=== PATIENT | female | born 1970 | race Caucasian/White ===

== ENCOUNTER 2024-08-02 08:10 | Outpatient (CLI) | payer MEDICARE, SELFPAY ==
--- NOTE | ~2024-08-02 | US_ITS ---
EXAMINATION: US soft tissue head and neck DATE: 08/02/2024 08:23 INDICATION: Localized swelling, mass and lump, head and neck. TECHNIQUE: Multiple grayscale and Doppler ultrasound images of the head and neck were obtained. COMPARISON: None FINDINGS: In the right posterior inferior scalp, there is a 5.4 x 5.4 x 2.2 cm mass with similar echo genicity and echotexture to normal subcutaneous fat, consistent with a lipoma. IMPRESSION: 1. 5.4 cm lipoma in the right posterior inferior scalp. Reviewed, dictated and finalized at location [] NUE SETTLEMENTS ADMINISTRATOR
== END 2024-08-02 08:11 | disposition home or self-care (01) ==
LOC: GOSHIMG 08:10
PROVIDERS: PCP Physician Assistant Surgical; Visit Provider Physician Assistant Surgical
DX: D17.39 Benign lipomatous neoplasm of skin and subcutaneous tissue of other sites (principal); R22.0 Localized swelling, mass and lump, head
CPT/HCPCS: 76536

== ENCOUNTER 2024-12-29 00:11 | Day surgery (SDC) | payer MEDICARE, SELFPAY ==
[2024-12-22 11:13] VITALS: BMI 41.4
--- NOTE | 2024-12-22 11:14 | PC.NURSE ---
Report to the Outpatient Waiting Room, entrance under the green pavilion located off [facility], at time _0600_ on date _[id number]_. Planned Procedure Time: _0730_.? Time changes happen often and if your time is changed the preop area will call you the afternoon before. - You and your visitor will be asked to self-screen and do not enter if you have any COVID symptoms. Please call surgeon if you need to reschedule. - A mask is optional within the hospital at this time. - No food drink from midnight until time of surgery and no smoking, or chewing tobacco (or any form of nicotine). No chewing gum, candy or mints. Take only the following medications with a SIP of water on the morning of surgery: ___Atenolol and eye drops____ DO NOT STOP ANY OF YOUR OTHER PRESCRIPTION MEDICATIONS PRIOR TO SURGERY EXCEPT THE FOLLOWING Hold all vitamins and supplements for 3 days per anesthesiologist. Medications to discontinue per physician Date to take last zmma__[id number]____ Please no make-up, nail south su[place]ese, hairspray, perfume, deodorant, or body powder the day of surgery.? No jewelry (including any body piercings) or valuables the day of surgery, leave them at home.? Please take a shower or bath the night before, or the morning of, surgery with an antibacterial soap.? Wear comfortable, loose fitting clothing.? - Jewelry must be removed prior to entering the operating room.? Rings and piercings that are not removed may be cut off. - The hospital will not accept responsibility for valuables.? - Please leave all valuables, including medications, at home the day of surgery. If you are going home after surgery, a licensed salesperson driver must drive you home.? - NO public transportation without another adult if you receive anesthesia. - We recommend that an adult stay with you for 24 hours following discharge. - We also recommend that you do not drive, make important decision, drink alcoholic beverages, or take any drugs that were not prescribed by your health care provider for at least 24 hours after your discharge time. Follow any additional instructions given to you from your surgeon. Telephone instructions given to __Fred Rosa/brother___and asked if any additional questions and then verbalized understanding. Patient advised to call surgeon office or pre surgery nurse liaison [phone] if any additional questions.
[2024-12-29] VITALS (9 sets, daily range): BP systolic 143–162; BP diastolic 87–103; PULSE 63–90; RESP 14–20; TEMP 36.1–36.8; O2SAT 94–99
--- OUTSIDE RECORDS SUMMARY | 2024-12-29 00:13 | XMS_ITS | Continuity of Care Document ---
Author Organization [facility] Address [address] [place] [address] [address] [place] [address] Phone Care Team Providers Care Acid Plant Helper Name Role Phone Toño DAMON FACS, José Unavailable Unavailab le Procedures Procedure Date Eye Exam Established Pt Corneal Topography Eye Exam Established Pt Eye Exam Established Pt Eye Exam Established Pt Eye Exam Established Pt Office/outpatient Visit, Est Eye Exam & Treatment Oct Fundus Photography W/ Report Eye Exam Established Pt Optic Nerve Head Eval Office/outpatient Visit, Est Optic Nerve Head Eval Office/outpatient Visit, Est Optic Nerve Head Eval Office/outpatient Visit, Est Office/outpatient Visit, Est Inject/treat Eye Socket Office/outpatient Visit, Est Office/outpatient Visit, Est Office/outpatient Visit, Est Eye Exam Established Pt Office/outpatient Visit, Est Eye Exam Established Pt Office/outpatient Visit, Est Advance Directives Directive Yes / No Effective Date File Name No Information Encounters Encounter Description Practice Location Reason(s) For Visit Diagnoses Date Provider Providers Copied on Encounter [facility], [address], [place], [place], [id number], tel:[phone] SEC [facility] Nannette No Information Nov-1 4-200 7 Toño Kumar. [address], [address], [place], [place], [address], [place]. tel:[phone] Referring Provider: Nettie Daugherty, [address], [place], [place], [facility]. tel:[phone] [facility] Eye [facility], [address], [place], [place], [address], [place] tel:[phone] SEC [place] TIFFANY Professional No Information Nov-0 9-200 7 Isidra Sheffield. [address] [facility], [address], [place], [place], [facility], [place]. tel:[phone] [facility] Eye [facility], [address], [place], [place], [address], [place] tel:[phone] SEC [place] Professional No Information Nov-0 7-200 7 Isidra Sheffield. [address], [address], [place], [place], [facility], [place]. tel:[phone] [facility], [address], [place], [place], [address], [place] tel:[phone] SEC [place] Professional No Information Oct-1 7-200 7 Isidra Sheffield. [address], [address], [place], [place], [facility], [place]. tel:[phone] [facility], [address], [place], [place], [address], [place] tel:[phone] SEC [place] Professional No Information Oct-1 2-200 7 Isidra Sheffield. [address], [address], [place], [place], [facility], [place]. tel:[phone] Office/outpat ient Visit, Est [facility], [address], [place], [place], [address], [place] tel:[phone] SEC [facility] Professional No Information Oct-1 0-200 7 Isidra Sheffield. [address] [facility], [address], [place], [address], [place]. tel:[phone] [facility], [address], [place], [place], [address], [place] tel:[phone] SEC [facility] Professional No Information Oct-0 2-200 7 Isidra Sheffield. [address] [facility], [address], [place], [address], [place]. tel:[phone] Referring Provider: Earl Thurston, [address] [place], [place] [address], [place], [place], [facility]. tel:[phone] [facility], [address] [place] [address] [address], [place], [place], [address], [place] tel:[phone] SEC [facility] No Information Oct-0 1-200 7 Valerie Elliott. [facility] , [address], [place], [place], [facility], [place]. tel:[phone] Office/outpat ient Visit, [facility] Eye [facility], [address] [place] [address] [address], [place], [place], [address], [place] tel:[phone] SEC [facility] Corporate Center No Information Aug-0 2-200 7 Kaitlyn Lawson. [address] , [address], [place], [facility], [place]. tel:[phone] Office/outpat ient Visit, [facility] Eye [facility], [address] [place] [address] [address], [place], [place], [address], [place] tel:[phone] SEC [facility] No Information Boy-1 9-200 7 Kaitlyn Lawson. [address] [facility] , [address], [place], [facility], [place]. tel:[phone] Office/outpat ient Visit, [email or web address], [address] [place] [address] [address], [place], [place], [address], [place] tel:[phone] SEC [facility] No Information Apr-0 5-200 7 Sahni Lulu. [address] , [address], [place], [facility], . tel:[phone] Office/outpat ient Visit, [facility], [address] [place] [address] [address], [place], [place], [address], [place] tel:[phone] SEC [facility] No Information Mar-0 8-200 7 Sahni Lulu. [address] , [address], [place], [facility], . tel:[phone] [facility], [address] [place] [address] [address], [place], [place], [address], tel:[phone] SEC [facility] [facility] No Information Feb-2 2-200 7 Sahni Lulu. [address] , [address], [place], [facility], [place]. tel:[phone] Office/outpat ient Visit, [facility], [address] [place] [address] [address], [place], [place], [address], [place] tel:[phone] SEC [facility] No Information Feb-2 1-200 7 Edgar OD Omid. [address] , [address], [place], [facility], [place]. tel:[phone] Office/outpat ient Visit, [facility], [address] [place] [address] [address], [place], [place], [address], [place] tel:[phone] SEC [facility] [facility] No Information Feb-0 7-200 7 Edgar OD Omid. [address] , [address], [place], [facility], [place]. tel:[phone] Office/outpat ient Visit, [facility] Eye [facility], [address], [place], [place], [address], [place] tel:[phone] SEC [facility] [facility] No Information 1-200 7 Edgar OD Omid. [address] , [address], [place], [facility], [place]. tel:[phone] [facility], [address] [place] [address] [address], [place], [place], [address], [place] tel:[phone] SEC [facility] No Information 6-200 7 Doisy Edward. [address] , [address], [place], [facility], . tel:[phone] Office/outpat ient Visit, [facility] Eye [facility], [address] [place] [address] [address], [place], [place], [address], [place] tel:[phone] SEC [facility] No Information 9-200 7 Egdar OD Omid. [address] , [address], [place], [facility], [place]. tel:[phone] [facility], [address] [place] [address] [address], [place], [place], [address], [place] tel:[phone] SEC [facility] No Information 2-200 7 Edgar OD Omid. [address] , [address], [place], [facility], [place]. tel:[phone] Office/outpat ient Visit, [facility], [address] [place] [address] [address], [place], [place], [address], [place] tel:[phone] SEC [facility] No Information 0-200 7 Edgar OD Omid. [address] , [address], [place], [facility], [place]. tel:[phone] Family History Family Member Type Diagnosis Age At Onset No Information Payers Payer name Insurance type Covered democrat ID Authoriza tion(s) [place] [id number] Social History Type Description Quantity Date Captured Comments Sex Female Smoking Status No Information Chief Complaint And Reason For Visit No Information Reason For Referral Reason For Referral No Information History Of Present Illness Encounter Date Complaint History Of Prese nt Illness No Information Functional Status Date Functional Assessmen t No Information Instructions Date Instruction Additional Infor mation No Information Assessments Type Assessment Date No Information Patient Care Teams Name Effective Dates (start - stop) Status Members No Information
--- OUTSIDE RECORDS SUMMARY | 2024-12-29 00:13 | XMS_ITS | Data Portability ---
Author Organization [facility], Main Office Address [address] [place] [address] Care Team Providers Care Technician Helper Instrument Name Role Phone KEESHA LOVE Primary Care Provider CARLOS Management Instructor Assessment Encounter Date Assessment Date Assessment LastModified by Organization Details LastModified Time 12/11/2022 12/11/2022 mawv portion completed by Max Ruiz RN under supervision of Dr Love Continue current therapy follow-up in 4 months [email or web address] Not available 12/13/2022 22:42:18 04/12/2023 04/12/2023 Caloric restriction flu shot follow-up 4 months [email or web address] Not available 04/12/2023 20:35:17 Plan of Treatment Reminders Order Date Submit Date Provider Last Modified By Organization Details Last Modified Time Details Appointments None record ed. Lab None record ed. Referral None record ed. Procedures None record ed. Surgeries None record ed. Imaging None record ed. Medication Orders None record ed. Patient TargetsNo targets recorded. Patient Instructions Encounter Date Encounter Id Patient Instructions Last Modified By Organization Details Last Modified Time 12/11/2022 [id number] dementia rating scale-2* [email or web address] Not available 12/13/2022 22:42:42 alcohol misuse* [email or web address] Not available 12/13/2022 22:42:42 depression screening* [email or web address] Not available 12/13/2022 22:42:42 multi-dimensiona l health assessment questionnaire* Not available 12/13/2022 22:42:42 advance directiv es: care instructions Not available 12/13/2022 22:42:42 Personalized Hea lt Plan and Screening Recommendations Advance Directives - Do you have one? No Advance Directives - Do we have your advance directive on file in your health record? Primary Prevention/Interven tion (prevents or decreases the chance of common diseases from occurring) Smoking Risk: Non Smoker Alcohol Misuse Screening: Negative Weight: Overweight try to lose 15% of your body weight Physical activity: Need more exercise/physical activity minimum of 20-30 minutes activity that causes mild breathlessness/day Nutrition: Average Refer to attached handout Heart-Healthy Diet: After Your Visit Fall Risk (screened today): Low Refer to attached handout Preventing Falls: After your Visit Vaccines Pneumococcal: Your next one in:13 years Influenza: Your next one in the fall of this year Chronic Disease Risks Stroke: Intermediate Risk Active diagnosis, Continue current treatment plan Heart Attack: Intermediate Risk Active diagnosis, Continue current treatment plan Clogging of the Arteries: Intermediate Risk Active diagnosis, Continue current treatment plan Diabetes: Low Risk I have no recommendations Secondary Prevention/Interven tion (detects treatable diseases before they may cause symptoms, disability, or ) Breast Cancer Screening with mammogram: Your next mammogram: 07/09/22 Cervical/Uterine/Ov keena Cancer Screening: No screening necessary Osteoporosis Screening: Your next DEXA in:at 64 Date Screening Last Performed: Colon Cancer Screening: Colonoscopy In:2030 Date Screening Last Performed: Eye Disease Screening: Your next exam in: annually Dementia Risk: Low I have no recommendations Depression Screening: Negative [email or web address] Not available 12/11/2022 11:26:01 Reason for Referral None Reported. Results Created Date Observation Date Name Description Value Unit Range Abnormal Flag Note LastModifiedBy Organization Detail LastModifiedTime 03/14/2003/14/2021 COMPR EHENS KRISTIN METAB OLIC PANEL sodium 141 mmol/ L 137-14 5 Not Available [facility] (Lab) [address] [place], [address], 03/14/2021 15:03:51 03/14/20 21 03/14/2021 COMPR EHENS KRISTIN METAB OLIC PANEL potassium 4.4 mmol/ L 3.5-5. 1 Not Available [facility] (Lab) [address] [place], [address], 03/14/2021 15:03:51 03/14/20 21 03/14/2021 COMPR EHENS KRISTIN METAB OLIC PANEL chloride 105 mmol/ L 98-107 Not Available [facility] (Lab) [address] [place], [address], 03/14/2021 15:03:51 03/14/20 21 03/14/2021 COMPR EHENS KRISTIN METAB OLIC PANEL carbon dioxide 31 mmol/ L 22-30 high Not Available [facility] (Lab) [address] [place], [address], 03/14/2021 15:03:51 03/14/20 21 03/14/2021 COMPR EHENS KRISTIN METAB OLIC PANEL agap 9.4 mmol/ L 14-22 low Not Available [facility] (Lab) [address] [place], [address], 03/14/2021 15:03:51 03/14/20 21 03/14/2021 COMPR EHENS KRISTIN METAB OLIC PANEL glucose 95 mg/dL 70-99 Not Available [facility] (Lab) [address] [place], [address], 03/14/2021 15:03:51 03/14/20 21 03/14/2021 COMPR EHENS KRISTIN METAB OLIC PANEL BUN 12 mg/dL 8-19 Not Available [facility] (Lab) [address] [place], [address], 03/14/2021 15:03:51 03/14/20 21 03/14/2021 COMPR EHENS KRISTIN METAB OLIC PANEL creatinine 0.87 mg/dL 0.66-1 .25 Not Available [facility] (Lab) [address] [place], [address], 03/14/2021 15:03:51 03/14/20 21 03/14/2021 COMPR EHENS KRISTIN METAB OLIC PANEL GFR >60 Refer ence Range : [place] [facility] GFR Healt hy Adult : >60 mL/mi n/1.7 3 m2 Chron ic Kidne y Disea se: 15-60 mL/mi n/1.7 3 m2 Kidne y Failu re: <15/m L/min /1.73 m2 www.n iddk. nih.g ov MDRD study equat ion hasn' t been valid ated in child faisal <18 yrs of age, pregn ant women , the elder ly >85 yrs of age, or in some racia l or ethni c subgr oups, suc as Hispa nics. Outsi de the valid ated mariza eters , estim ated GFR is less accur ate requi ring clini dinora judgm ent on a case by case basis . Clini dinora inter preta tion for other races and ages must be made by the clini ezio . Futhe rmore , any of th e limit ation s with the use of serum creat inine relat ed to nutri teresa l statu s o r medic ation usage hasn' t accou nted for the MDRD Study equat ion. For perso ns < 18 yrs of age, a pedia tric GFR calcu lator can be locat ed on the [facility] websi te: https ://giselle w.kid luisa.o rg/pr ofess ional s/kdo qi/gf r_cal culat or Not Available [facility] (Lab) [address] [place], [address], 03/14/2021 15:03:51 03/14/20 21 03/14/2021 COMPR EHENS KRISTIN METAB OLIC PANEL alkaline phosphatase 80 U/L 38-126 Not Available [facility] (Lab) [address] [place], [address], 03/14/2021 15:03:51 03/14/20 21 03/14/2021 COMPR EHENS KRISTIN METAB OLIC PANEL alanine aminotransfe rase 30 U/L 0-35 Not Available [facility] (Lab) [address] [place], [address], 03/14/2021 15:03:51 03/14/20 21 03/14/2021 COMPR EHENS KRISTIN METAB OLIC PANEL aspartate aminotransfe rase 30 U/L 15-37 Not Available [facility] (Lab) [address] [place], [address], 03/14/2021 15:03:51 03/14/20 21 03/14/2021 COMPR EHENS KRISTIN METAB OLIC PANEL bilirubin, total 1.30 mg/dL 0.20-1 .30 Not Available [facility] (Lab) [address] [place], [address], 03/14/2021 15:03:51 03/14/20 21 03/14/2021 COMPR EHENS KRISTIN METAB OLIC PANEL calcium 9.8 mg/dL 8.4-10 .2 Not Available [facility] (Lab) [address] [place], [address], 03/14/2021 15:03:51 03/14/20 21 03/14/2021 COMPR EHENS KRISTIN METAB OLIC PANEL total protein 7.3 g/dL 6.3-8. 2 Not Available [facility] (Lab) [address] [place], [address], 03/14/2021 15:03:51 03/14/20 21 03/14/2021 COMPR EHENS KRISTIN METAB OLIC PANEL albumin 4.3 g/dL 3.4-5. 0 Not Available [facility] (Lab) [address] [place], [address], 03/14/2021 15:03:51 03/14/20 21 03/14/2021 COMPR EHENS KRISTIN METAB OLIC PANEL globulin 3.0 g/dL 2.6-4. 2 Not Available [facility] (Lab) [address] [place], [address], 03/14/2021 15:03:51 03/14/20 21 03/14/2021 COMPR EHENS KRISTIN METAB OLIC PANEL A/G ratio 1.4 ratio 1.0-2. 0 Not Available [facility] (Lab) [address] [place], [address], 03/14/2021 15:03:51 03/14/20 21 03/14/2021 LIPID PANEL cholesterol 202 mg/dL 140-19 9 high NIH PHILL NSUS RECOM MENDA TION FOR FALGUNI STERO L: ADULT CHILD LOW RISK: <200 <170 BORDE RLINE : <200- 239 ----- HIGH RISK: >240 >200 Not Available [facility] (Lab) [address] [place], [address], 03/14/2021 15:03:48 03/14/20 21 03/14/2021 LIPID PANEL triglyceride s 185 mg/dL 0-150 high NIH PHILL NSUS REPOR T RECOM MENDA TION FOR TRIGL YCERI BINH: ADULT CHILD LOW RISK: <150 ----- BODER LINE: 150-1 99 ----- HIGH RISK: >200 ----- Not Available [facility] (Lab) [address] [place], [address], 03/14/2021 15:03:48 03/14/20 21 03/14/2021 LIPID PANEL HDL cholesterol 49 mg/dL 40- Not Available [facility] (Lab) [address] [place], [address], 03/14/2021 15:03:48 03/14/20 21 03/14/2021 LIPID PANEL LDL cholesterol, calculated 116 mg/dL 0-130 NIH PHILL NSUS REPOR T RECOM MENDA TIONS FOR LDL: ADULT CHILD LOW RISK <130 <110 (OPTI MAL LDL) <100 ----- BORDE RLINE : 130-1 59 ----- HIGH RISK: >160 >130 A TRIGL YCERI DE RESUL T >400 INVAL IDATE S THE CALCU LATIO N FOR LDL FRACT IONAT ION - THE LDL RESUL T WILL NOT BE REPOR BRAD. Not Available [facility] (Lab) [address] [place], [address], 03/14/2021 15:03:48 12/26/19 22 12/04/2021 Perip heral Arter y Disea se (PAD) Self Asses sment Tool* No observ ation record ed. [id number] [facility] [address], [place], [address], 08/05/2022 04:58:15 12/11/19 23 07/08/2022 MAMMO , scree troy, digit al, bilat eral No observ ation record ed. BARCODE Not Available 2022 16:29:57 09/24/19 24 09/24/2023 DEXA, axial skele ton [facility] [address] [place] [address] Patien t Name: FAIZA PARRA Access ion #: [id number] Sex: F : 1970 4 Dictat ed By: Stephan Iniguez ms Attend ing Physic flavio: KARISSA LOVE Orderi Physic flavio: KARISSA LOVE Exam Date: 2023 07:18 AM Exam Name: XR DEXA-H IPS PELVIS SPINE Admitt ing Diagno sis(es ): PROCED URE: DEXA SCAN INDICA TION: Postme nopaus al state. TECHNI QUE: Bone densit ometry of the lumbar spine and bilate ral hips was perfor med on a [employer] c unit using dual energy x-ray absorp tiomet ry (DEXA) . COMPAR MIESHA: None BONE DENSIT Y REPORT : The pattern chain builder images are limite d for evalua tion of fine bony detail . BONE DENSIT Y REPORT : Bone minera l densit y (BMD) AP SPINE (L1-L4 ) BMD: 1.199 (Grams /cm2). T Score: -0.4 LEFT FEMORA L NECK BMD: 0.996 (Grams /cm2). T Score: -0.3 LEFT HIP TOTAL BMD: 1.053 (Grams /cm2). T Score: 0.4 RT FEMORA L NECK BMD: 0.862 (Grams /cm2). T Score: -1.3 RT HIP TOTAL BMD: 0.954 (Grams /cm2). T Score: -0.4 10 YEAR FRACTU RE RISK* Major osteop orotic fractu re not provid ed (less than 20% is consid ered low risk). Hip fractu re not provid ed (less than 3% is consid ered low risk). IMPRES ESTHER: Using the World Health Organi zation (WHO) classi ficati on, bone minera l densit y is: Osteop enia. Page 1 [facility] [address] [place] [address] Patien t Name: FAIZA PARRA Access ion #: [id number] Sex: F : 1970 4 Dictat ed By: Stephan Iniguez ms Attend ing Physic flavio: KHOA GOMEZ [facility] Physic flavio: KARISSA LOVE Exam Date: 2023 07:18 AM Exam Name: XR DEXA-H IPS PELVIS SPINE Admitt ing Diagno sis(es ): ------ ------ ------ ------ ------ ------ ------ ------ ----- *FRAX versio n 3.08. Fractu re probab ility calcul ated for an untrea brad patien t. Fractu re probab ility may be lower if the patien t has receiv ed treatm ent. T-scor e: compar miesha by sridhar santiago deviat ion (SD) to a young adult popula tion, matche d for sex and ethnic ity (used for postme nopaus al women and men >50 years) and classi fied by WHO criter ia. -1.0: normal <-1.0 to >-2.5: osteop enia -2.5: osteop orosis -2.5 plus fragil ity fractu re: severe osteop orosis Z-scor e: compar ed by SD to an age, sex, and ethnic ity popula tion (used for premen opausa l women, men <50 years, and childr en instea d of T-scor e WHO criter ia 4) <-2.0: below expect ed range/ low bone densit y for age, and a cause should be sought . All treatm ent decisi ons requir e clinic al judgme nt and consid eratio n of indivi dual patien t factor s, includ ing patien t prefer ences, comorb iditie s, previo us drug use and risk factor s not captur ed in the FRAX model (for exampl e vitami n D defici ency, falls, frailt y, increa sed bone turnov er, interv al signif icant declin e in BMD). Electr onical ly Signed by: Stephan Iniguez ms at 2023 07:46: 52 AM Page 2 [email or web address] [facility] (Imaging) [address] [place], [address], 12/21/2023 08:46:35 01/25/20 24 01/25/2024 scree troy breas t alden, bilat [facility] [address] [place] [address] Patien t Name: FAIZA PARRA ion #: [id number] Sex: F : 1970 2 Dictat ed By: Chetna Joya Attend [facility] Physic flavio: KARISSA LOVE [facility] Physic flavio: KARISSA LOVE Exam Date: 2023 12:36 PM Exam Name: MG KAROL BREAST ALDEN BILAT Admitt ing Diagno sis(es ): SCREEN ING MAMMOG ODILON WITH TOMOSY NTHESI S: REASON FOR EXAM: screen ing mammog odilon COMPAR MIESHA: MG SCRN BREAST ALDEN BILAT 3D on DOS: 07/08/22 , SCREEN ING BREAST ALDEN, BILAT 3D on DOS: 0, SCREEN ING BREAST ALDEN, BILAT 3D on DOS: 9 TECHNI QUE: Bilate ral CC and MLO views obtain ed. Images were obtain ed using a Digita l [employer] nthesi s Unit. Standa rd 2D and 3D Tomosy nthesi s images were review ed. FINDIN GS: BREAST COMPOS ITION: There are scatte red areas of fibrog landul ar densit y in the bilate ral breast s. In the right breast , no asymme trical parenc hymal patter n, chris ectura l distor tion, pleomo rphic microc alcifi cation s or masses . In the left breast , no asymme trical parenc hymal patter n, chris ectura l distor tion, pleomo rphic microc alcifi cation s or masses . IMPRES ESTHER: No findin gs of malign magda. Recomm end annual mammog odilon. BIRADS : 1 - Negati ve Electr onical ly Signed by: Chetna Joya at 2023 13:22: 40 PM Page 1 [facility] [address] [place] [address] Patien t Name: PARRA FAIZA Access ion #: [id number] Sex: F : 1970 2 Dictat ed By: Chetna Joya Attend ing Physic flavio: KHOA GOMEZ [facility] Physic flavio: KARISSA LOVE Exam Date: 2023 12:36 PM Exam Name: MG SCRN BREAST ALDEN BILAT Admitt ing Diagno sis(es ): Page 2 [facility] (Imaging) [address] [place] [address], [address], 02/17/2024 16:36:20 Result Notes Documentation Provider Name and Address Organization Details Recorded Time Dexa, Axial Skeleton : [address] [address] Patient Name: FAIZA PARRA Sex: F : 1970 Dictated By: Linda Stauffer Attending Physician: KEESHA LOVE Ordering Physician: KEESHA LOVE Exam Date: 09/24/2023 07:18 AM Exam Name: XR DEXA-HIPS PELVIS SPINE Admitting Diagnosis(es): PROCEDURE: DEXA SCAN INDICATION: Postmenopausal state. TECHNIQUE: Bone densitometry of the lumbar spine and bilateral hips was performed on a [employer] unit using dual energy x-ray absorptiometry (DEXA). COMPARISON: None BONE DENSITY REPORT: The pattern chain builder images are limited for evaluation of fine bony detail. BONE DENSITY REPORT: Bone mineral density (BMD) AP SPINE (L1-L4) BMD: 1.199 (Grams/cm2). T Score: -0.4 LEFT FEMORAL NECK BMD: 0.996 (Grams/cm2). T Score: -0.3 LEFT HIP TOTAL BMD: 1.053 (Grams/cm2). T Score: 0.4 RT FEMORAL NECK BMD: 0.862 (Grams/cm2). T Score: -1.3 RT HIP TOTAL BMD: 0.954 (Grams/cm2). T Score: -0.4 10 YEAR FRACTURE RISK* Major osteoporotic fracture not provided (less than 20% is considered low risk). Hip fracture not provided (less than 3% is considered low risk). IMPRESSION: Using the World Health Organization (WHO) classification, bone mineral density is: Osteopenia. Page 1 [place] [id number] Patient Name: FAIZA PARRA Sex: F : 1970 [id number] Dictated By: Linda Stauffer Attending Physician: KHOA THAO Ordering Physician: KEESHA LOVE Exam Date: 09/24/2023 07:18 AM Exam Name: XR DEXA-HIPS PELVIS SPINE Admitting Diagnosis(es): --- *FRAX version 3.08. Fracture probability calculated for an untreated patient. Fracture probability may be lower if the patient has received treatment. T-score: comparison by standard deviation (SD) to a young adult population, matched for sex and ethnicity (used for postmenopausal women and men >50 years) and classified by WHO criteria. -1.0: normal <-1.0 to >-2.5: osteopenia -2.5: osteoporosis -2.5 plus fragility fracture: severe osteoporosis Z-score: compared by SD to an age, sex, and ethnicity population (used for premenopausal women, men <50 years, and children instead of T-score WHO criteria 4) <-2.0: below expected range/low bone density for age, and a cause should be sought. All treatment decisions require clinical judgment and consideration of individual patient factors, including patient preferences, comorbidities, previous drug use and risk factors not captured in the FRAX model (for example vitamin D deficiency, falls, frailty, increased bone turnover, interval significant decline in BMD). Page 2 Christie Waller APRN [address] [facility] [address], [place], [address], [employer] 12/21/2023 08:46:35 Problems Name Problem SNOMED Code Status Onset Date Resolution Date Notes Provider Name and Address Organization Details Recorded Time Benign hypertension 49153534 Active Not Available [facility] 3 04:48:56 Bronchitis 64336556 Active Not Available [facility] 3 04:48:56 Obese 663185681 Active Not Available [facility] 3 04:48:57 Hyperlipidemi a 46105983 Active 2019 Not Available [facility] 3 04:48:57 Problem Notes None recorded. Procedures Surgical History Date Name Laterality Status Provider Name and Address Organization Details Recorded Time 12/12/19 23 Medicare Wellness CPT Code, Initial completed Charmaine Ruiz RN [employer] 12/11/2022 11:10:51 07/08/19 23 Date of Last Mammogram completed Charmaine Ruiz RN [employer] 12/11/2022 11:13:04 12/26/19 21 Date of Last Colonoscopy completed Charmaine Ruiz RN [employer] [facility] 12/11/2022 11:13:41 Eye Surgery completed Not Available [facility] 08/05/2022 04:42:50 Imaging Results None recorded. Procedure Notes None recorded. Medical Equipment None Reported. Allergies No known drug allergies Medications Name Sig Start Date Stop Date Status Note LastModified by Organization Details LastModified Time prednison e 10 mg tablet Take 3 tablets x 3 days, 2 tablets x 3 days, 1 tablet x 3 days active Not Available Not Available No t Available azithromy nba 250 mg tablet Take 1 dose pk by oral route as directed . 09/09 completed Not Available Not Available Not Available benzonata te 200 mg capsule Take 1 capsule 3 times a day by oral route for 7 days. 09/09 completed Not Available Not Available Not Available atenolol 25 mg tablet TAKE 1 TABLET BY MOUTH DAILY 2023 active Not Available Not Available Not Avai lable Nexium 40 mg capsule,d elayed release 06/24 completed Not Available Not Available Not Available acetamino phen 300 mg-codein e 30 mg tablet active Not Available Not Available Not Available triamcino lone acetonide 0.1 % topical cream APPLY A THIN LAYER TO THE AFFECTED AREA(S) BY TOPICAL ROUTE 2 TIMES PER DAY PRN active Not Available Not Available No t Available Kenalog 40 mg/mL suspensio n for injection Take 40 mL by injectio n route. 11/11 completed manufact urer is [employer] ndc:[phone] Not Available Not Available Not Available prednisol one acetate 1 % eye drops,shelia pension INSTILL 1 DROP INTO LEFT EYE TWICE DAILY active Not Available Not Available No t Available triamcino lone acetonide 0.1 % topical ointment APPLY A THIN LAYER TO THE AFFECTED AREA(S) BY TOPICAL ROUTE 2 TIMES PER DAY X 2 WEEKS active Not Available Not Available No t Available dorzolami de 22.3 mg-timolo l 6.8 mg/mL eye drops INSTILL 1 DROP IN LEFT EYE THREE TIMES DAILY active Not Available Not Available No t Available monteluka st 10 mg tablet Take 1 tablet every day by oral route. 01/27 completed Not Available Not Available Not Available hydroxyzi ne HCl 25 mg tablet Take 1 tablet 3 times a day by oral route as needed for 10 days. active Not Available Not Available No t Available ibuprofen 600 mg tablet active Not Available Not Available Not Available amoxicill in 875 mg-potass ium clavulana te 125 mg tablet Take 1 tablet twice a day by oral route. 03/11 completed Not Available Not Available Not Available Pneumovax -23 25 mcg/0.5 mL injection syringe PHARMACI ST ADMINIST ERED IMMUNIZA TION ADMINIST ERED AT TIME OF DISPENSI NG 07/14 completed Not Available Not Available Not Available Fluvirin 0992-5067 45 mcg (15 mcg x 3)/0.5 mL intramusc ular suspensio n active Not Available Not Available Not Available Fluvirin 8283-4014 45 mcg (15 mcg x 3)/0.5 mL intramusc ular suspensio n active Not Available Not Available Not Available Fluzone Quad 9457-7905 60 mcg (15 mcg x 4)/0.5 mL IM suspensio n active Not Available Not Available Not Available Fluzone Quad 7710-5079 60 mcg (15 mcg x 4)/0.5 mL IM suspensio n 05/19 completed Not Available Not Available Not Available Fluzone Quad 9580-0787 60 mcg (15 mcg x 4)/0.5 mL IM suspensio n 05/13 completed Not Available Not Available Not Available Fluzone Quad (PF) 60 mcg (15 mcg x 4)/0.5 mL IM syringe PHARMACI ST ADMINIST ERED IMMUNIZA TION ADMINIST ERED AT TIME OF DISPENSI NG 07/14 completed Not Available Not Available Not Available Flublok Quad (PF) 180 mcg (45 mcg x 4)/0.5 mL IM syringe PHARMACI ST ADMINIST ERED IMMUNIZA TION ADMINIST ERED AT TIME OF DISPENSI NG 05/17 completed Not Available Not Available Not Available Vitals Date Recorded Body mass index (BMI) Body height Heart rate Body temperature Body weight Systolic And Diastolic Provider Name and Address Organization Details Last Updated DateTime 3 40.2 kg/m2 175.26 cm 80 /min 97.7 [degF] 186898. 12 g 122/80 mm[Hg] Not Available [facility] 3 04:43:46 Date Recorded Body mass index (BMI) Body height Heart rate Body temperature Body weight Systolic And Diastolic Provider Name and Address Organization Details Last Updated DateTime 2 40.3 kg/m2 175.26 cm 78 /min 97.5 [degF] 913685. 72 g 138/80 mm[Hg] Not Available [facility] 3 04:43:46 Date Recorded Body height Body mass index (BMI) Body weight Body temperature Heart rate Systolic And Diastolic Provider Name and Address Organization Details Last Updated DateTime 3 175.26 cm 40 kg/m2 813150. 53 g 97.3 [degF] 74 /min 122/82 mm[Hg] MARTHA Pacheco [facility] [employer] [facility] 3 10:58:08 Date Recorded Pain severity - 0-10 verbal numeric rating [Score] - Reported Provider Name and Address Organization Details Last Updated DateTime 12/11/2022 0 Charmaine Ruiz RN [facility] [employer] [facility] 12/11/2022 11:11:50 Date Recorded Body mass index (BMI) Body height Heart rate Body temperature Body weight Systolic And Diastolic Provider Name and Address Organization Details Last Updated DateTime 1 39.6 kg/m2 175.26 cm 102 /min 96.8 [degF] 755276. 76 g 128/72 mm[Hg] Not Available [facility] 3 04:43:46 Date Recorded Body height Body mass index (BMI) Body weight Body temperature Heart rate Systolic And Diastolic Provider Name and Address Organization Details Last Updated DateTime 3 175.26 cm 40.6 kg/m2 709066. 9 g 98.3 [degF] 96 /min 126/80 mm[Hg] Aissatou patel RN [facility] [employer] [facility] 3 15:49:26 Social History Question Answer Notes LastModified by Organization Details LastModified Time Tobacco Smoking Status Never Smoker Not Available [facility] 08/05/2022 04:04:39 Do You Have An Advance Directive? No [id number] Information not available 08/05/2022 What Is Your Level Of Caffeine Consumption? Moderate [id number] Information not available 08/05/2022 How Much Tobacco Do You Chew? None [id number] Information not available 08/05/2022 In The 14 Days Before Symptom Onset, Have You Had Close Contact With A Laboratory-confi rmed COVID-19 While That Case Was Ill? No [id number] Information not available 08/05/2022 In The 14 Days Before Symptom Onset, Have You Had Close Contact With A Person Who Is Under Investigation For COVID-19 While That Person Was Ill? No MIGRATION.030 [id number] Information not available 08/05/2022 What Type Of Diet Are You Following? REGULAR MIGRATION.030 [id number] Information not available 08/05/2022 Which Illicit Or Recreational Drugs Have You Used? None MIGRATION.030 [id number] Information not available 08/05/2022 What Is The Highest Grade Or Level Of School You Have Completed Or The Highest Degree You Have Received? [id number] MIGRATION.030 754853 Information not available 08/05/2022 Have There Been Any Changes To Your Family Or Social Situation? No MIGRATION.030 773663 Information not available 08/05/2022 What Is The Fluoride Status Of Your Home? Unknown MIGRATION.030 126663 Information not available 08/05/2022 Are There Any Guns Present In Your Home? Yes MIGRATION.030 691243 Information not available 08/05/2022 Do You Use Insect Repellent Routinely? No MIGRATION.030 064628 Information not available 08/05/2022 Where Do You Live? SingleLevelHouse MIGRATION.030 762331 Information not available 08/05/2022 Presence Of Domestic Violence No Information not available 12/11/2022 Are You Able To Care For Yourself? Yes [email or web address] Information not available 12/11/2022 Are You Blind Or Do Yo Have Difficulty Seeing? Yes Legally Blind, Able To See Well Enough To Get Around [email or web address] Information not available 12/11/2022 Are You Deaf Or Do You Have Serious Difficulty Hearing? No [email or web address] Information not available 12/11/2022 Live Alone Of With Others? With Others [email or web address] Information not available 12/11/2022 Do You Have A Medical Power Of Visual Merchandising Director? No MIGRATION.030 [id number] Information not available 08/05/2022 What Was The Date Of Your Most Recent Tobacco Screening? 04/12/2023 [email or web address] Information not available 04/12/2023 Do You Have Any Pets? Yes MIGRATION.0301 [id number] Information not available 08/05/2022 What Is Your Relationship Status? Single MIGRATION.0301 982381 Information not available 08/05/2022 Do You Use Your Seat Belt Or Car Seat Routinely? Yes MIGRATION.0301 [id number] Information not available 08/05/2022 Do You Have Smoke And Carbon Monoxide Detectors In Your Home? Yes MIGRATION.0301 601403 Information not available 08/05/2022 Are You Passively Exposed To Smoke? No MIGRATION.0301 163778 Information not available 08/05/2022 Are There Any Smokers In Your House? No MIGRATION.0301 [id number] Information not available 08/05/2022 How Much Tobacco Do You Smoke? No MIGRATION.0301 982364 Information not available 08/05/2022 What Types Of Sporting Activities Do You Participate In? Bowling MIGRATION.0301 294276 Information not available 08/05/2022 Do You Use Sunscreen Routinely? No MIGRATION.0301 380979 Information not available 08/05/2022 Has Tobacco Cessation Counseling Been Provided? No MIGRATION.0301 626112 Information not available 08/05/2022 Have You Recently Traveled Abroad? No MIGRATION.0301 350246 Information not available 08/05/2022 Do You Have Any Dietary Restrictions? No MIGRATION.0301 209134 Information not available 08/05/2022 Sex: Female Functional Status Question Answer Note LastModified by [employer] ion Details LastModified Time Do you use any illicit or recreational drugs? No MIGRATION.235680 9319 Information not available 08/05/2022 Do you or have you ever used any other forms of tobacco or nicotine? No MIGRATION.463884 2740 Information not available 08/05/2022 What is your level of alcohol consumption? None MIGRATION.728228 7312 Information not available 08/05/2022 Do you or have you ever used smokeless tobacco? Never used smokeless tobacco MIGRATION.706201 5729 Information not available 08/05/2022 What is your occupation? Disabled MIGRATION.867964 7498 Information not available 08/05/2022 Do you or have you ever used e-cigarettes or vape? Never used electronic cigarettes MIGRATION.820431 7167 Information not available 08/05/2022 What is your exercise level? Moderate MIGRATION.384367 7962 Information not available 08/05/2022 Mental Status Question Answer Note LastModified by Organizat ion Details LastModified Time Do you feel stressed (tense, restless, nervous, or anxious, or unable to sleep at night)? [id number] MIGRATION.[id number] 6 Information not available 08/05/2022 Family History Relationship Description Onset Age of this Age Resolved Age Notes LastModified by Organization Details LastModified Time Mother Congestive heart failure MIGRATION.687 [id number] Not available 08/05/2022 04:42:52 Mother Diabetes mellitus MIGRATION.732 [id number] Not available 08/05/2022 04:42:52 Mother Malignant tumor of breast MIGRATION.843 [id number] Not available 08/05/2022 04:42:52 Sister Malignant tumor of breast age: 51 MIGRATION.412 [id number] Not available 08/05/2022 04:42:52 Father Hypertensive disorder MIGRATION.554 [id number] Not available 08/05/2022 04:42:52 Father Diabetes mellitus MIGRATION.649 [id number] Not available 08/05/2022 04:42:52 Father Hyperlipidem ia MIGRATION.808 [id number] Not available 08/05/2022 04:42:52 Brother Hyperlipidem ia MIGRATION.670 [id number] Not available 08/05/2022 04:42:52 Medical History Condition Response BLINDNESS Y NERVE DISEASE N RHEUMATIC FEVER N BLADDER PROBLEMS N KIDNEY STONES N MRSA N OTHER # 1 N POLIO N LUNG DISEASE/DISORDER N RADIATION / CHEMOTHERAPY N COPD N Other # 2 N BLOOD DISEASES N SURGERY N EAR OR HEARING PROBLEMS N MUMPS N DEPRESSION (INCLUDING POST ) N BOWEL PROBLEMS N STROKE/TIA N ULCERS N BENIGN PROSTATIC HYPERPLASIA N MEASLES N MYOCARDIAL INFARCTION N OBESITY Y GERD/NAUSEA N ANEURYSM N URINARY/BLADDER/KIDNEY PROBLEMS N CORONARY ARTERY DISEASE (CAD) N ADDICTION CONCERNS N Impotence N ENDOMETRIOSIS N USE OF BLOOD THINNERS N SKIN PROBLEMS N GASTROINTESTINAL DISORDER N PERIPHERAL VASCULAR DISEASE N MUSCLE,JOINT OR BONE PROBLEMS N GASTROINTESTINAL BLEEDING N BLOOD CLOTS N ASTHMA N CATARACTS N ERECTILE DYSFUNCTION N VARICOSITIES N GI PROBLEMS N Low Testosterone N INFERTILITY N AIDS/HIV N CHEMOTHERAPY / RADIATION N LIVER DISEASE N MALE HYPOGONADISM N HYPERTENSION Y Deficiency N ANXIETY DISORDER N BLOOD TRANSFUSION N ANEMIA/BLOOD DISORDER N CHRONIC EAR INFECTIONS N BRONCHITIS Y TUBERCULOSIS N GLAUCOMA N FOOT PROBLEM N DIVERTICULITIS N SLEEP APNEA N CHICKENPOX N INFECTIOUS DISEASE N PROSTATE N HEART ARRHYTHMIA N INSOMNIA N HIGH CHOLESTEROL / HYPERLIPIDEMIA N EYE PROBLEMS N HYPERTHYROIDISM N NEUROLOGICAL PROBLEMS N EDEMA N CHRONIC PAIN SYNDROME N HYPOTHYROIDISM N CONSTIPATION N CAROTID BLOCKAGE N BACK / NECK PROBLEMS N HAVE YOU BEEN HOSPITALIZED OR SEEN IN [facility] IN THE PAST YEAR ? N ATHEROSCLEROSIS N BREAST PROBLEMS N DIALYSIS N ECZEMA N OSTEOPOROSIS N ARTHRITIS N NO SIGNIFICANT PAST MEDICAL HISTORY N APPENDICITIS N DIABETES, TYPE N BAD TEETH N ENT N HEARTBURN / REFLUX N AUTISM SPECTRUM DISORDER (ASD) N HEPATITIS / LIVER DISEASE N GOUT N SLEEP DISORDER N ALZHEIMER'S DISEASE N Brain Problems N DEMENTIA N HERPES N SEIZURES/EPILEPSY N HEADACHES/MIGRAINES N VASCULAR DISEASE N PACEMAKER N Blood Disorder N DIZZINESS N HEART DISEASE/HEART PROBLEMS N KIDNEY DISEASE N MULTIPLE SCLEROSIS N CANCER: SPECIFY N CARDIAC ARRHYTHMIA N ATRIAL FIBRILLATION N Gall Stones N PULMONARY EMBOLISM N AUTOIMMUNE DISEASE N Gynecological History Statement/Question Response Abnormal Pap N Date of Last Mammogram 07/08/2022 Date of Last Mammogram 07/08/2022 Date of Last Colonoscopy 12/25/2020 Date of LMP 10/14/2017 Sexually Active? N Date of Last Pap Current Control Method Obstetrics History GPAL:G 0 P 0 0 0 0 Immunizations Vaccine Type Date Status Note Provider Nam e and Address Organization Details Recorded Time COVID-19, mRNA, LNP-S, PF, 100 mcg/0.5mL dose or 50 mcg/0.25mL dose 1 completed Not Available [facility] 08/05/2022 04:57:26 COVID-19, mRNA, LNP-S, PF, 100 mcg/0.5mL dose or 50 mcg/0.25mL dose 1 completed Not Available [facility] 08/05/2022 04:57:26 COVID-19, mRNA, LNP-S, PF, 100 mcg/0.5mL dose or 50 mcg/0.25mL dose 1 completed Not Available [facility] 08/05/2022 04:57:26 Influenza, split virus, quadrivalent, preservative 0 completed Not Available [facility] 08/05/2022 04:57:26 Influenza, split virus, quadrivalent, preservative 9 completed Not Available [facility] 08/05/2022 04:57:26 pneumococcal polysaccharide PPV23 9 completed Not Available [facility] 08/05/2022 04:57:26 influenza, unspecified formulation 8 completed Not Available [facility] 08/05/2022 04:57:26 Influenza, split virus, quadrivalent, preservative 7 completed Not Available [facility] 08/05/2022 04:57:26 pneumococcal polysaccharide PPV23 7 completed Not Available [facility] 08/05/2022 04:57:26 Influenza, split virus, quadrivalent, PF 6 completed Not Available [facility] 08/05/2022 04:57:26 Influenza, split virus, quadrivalent, PF 1 completed Not Available [facility] 08/05/2022 04:57:26 Tdap 5 completed Not Available [facility] 08/05/2022 04:57:27 Influenza, split virus, quadrivalent, PF 3 completed Keesha Love MD [address] [place] [address], [place] [address], [place], [address], [facility] 04/12/2023 20:35:37 Past Encounters Encounter ID Performer Location Encounter Start Date Encounter Closed Date Diagnosis/Indication Diagnosis SNOMED-CT Code Diagnosis ICD10 Code Diagnosis Note [id number] Keesha Love MD [facility] Internal Med [facility] [address] [facility] 15 [place] [address] 09/13/2020 00:00:00 09/22/2020 21:25:58 [id number] Keesha Love MD [facility] Internal Med [facility] [address] [place], [place] [address]., [facility] 15 [place] [address] 01/27/2021 00:00:00 02/23/2021 19:05:17 [id number] Keesha Love MD [facility] Internal Med [facility] [address] [place], [place] [address]., [facility] 15 [place] [address] 03/14/2021 00:00:00 04/13/2021 21:07:05 [id number] Keesha Love MD [facility] Internal Med [facility] [address] [place], [place] [address] [address] [address] 09/12/2021 00:00:00 09/27/2021 17:54:03 [id number] Keesha Love MD [facility] Internal Med [facility] [address] [place], [place] [address]., [address] [address] 06/19/2022 00:00:00 06/19/2022 15:55:20 [id number] Keesha Love MD [facility] Internal Med [facility] [address] , [facility] 15 [place] [address] 12/11/2022 10:46:24 12/11/2022 11:31:08 Adult health examination 256081070 Z00.00 Screening for disorder 689024841 Z13.9 Hyperlipidemia 05728418 E78.5 Obese 484014743 E66.9 [id number] Keesha Love MD [facility] Internal Med [facility] [address] , [facility] [address] [place] [address] 04/12/2023 15:17:51 04/12/2023 16:34:48 Administration of influenza vaccine 78480853 Z23 Hyperlipidemia 09020333 E78.5 Benign hypertension 1072 5009 I10 Obese 690569509 E66.9 Health Concerns Section Related Observation LastModified by Organization Detai ls LastModified Time None Recorded Concern Status LastModified by Organization Details LastModified Time None Recorded Advance Directives Directive N: Payers Insurance Date Sequence Insurance Name Policy Number Policy Troy Covered Member ID Troy Member ID Guarantor Name 06/14/2023 1 [employer] - DUAL ELIGIBLE - GOLD PLUS INTEGRATED (MEDICARE - HMO) Faiza Parra [id number] Faiza Parra Notes Date Note Type Note Provider Name and Address Organization Details Recorded Time 12/11/2022 text/html Obesity not real ly losing weight dyslipidemia numbers have been good she tries to watch his intake of saturated fat wellness conclude Keesha Love MD [address], [address], [place], [address], [employer] 12/13/2022 22:42:46 04/12/2023 text/html Hyperlipidemia t thai to watch diet obesity not losing weight hypertension no headache or dizziness Keesha Love MD [address], [place], [address], [employer] [facility] [employer] 04/12/2023 20:35:40 OBGyn Episode No OBEpisode recorded.
--- OUTSIDE RECORDS SUMMARY | 2024-12-29 00:13 | XMS_ITS | Clinical Summary ---
Author Organization [facility] Address [address] [place] [address] Care Team Providers Care Material Requirements Planning Manager Name Role Phone Kenneth Love MD Primary Care Provider Allergies No known active allergies Medications atenolol (TENORMIN) 25 mg tablet Take 25 mg by mouth daily. 2 09/23/2017 Active prednisoLONE acetate (PRED FORTE) 1 % ophthalmic suspension INSTILL 1 DROP INTO LEFT EYE 2 TIME A DAY 10 mL 11 11/06/2020 Active dorzolamide-harris oloL (COSOPT) 22.3-6.8 mg/mL ophthalmic solution INSTILL 1 DROP IN LEFT EYE THREE TIMES DAILY 10 mL 3 03/11/2022 Active Active Problems Problem Noted Date Diagnosed Date Chronic angle-closure glaucoma of eye, left, sev ere stage 07/05/2018 S/P PKP (penetrating keratoplasty) 11/29/2017 Overview (11/29/2017): Left--2007 Assessment & Plan (12/02/2020 10:11 AM CDT): penetrating keratoplasty (PK) from 2007. Cornea is stable No stain Continue pred forte (PF) BID Recheck 1 year Assessment & Plan (11/29/2019 10:10 AM CDT): Annual follow-up H/o s/p PKP OD/ ACIOL OS (06/2007), Secondary glaucoma. - vision stable, denies ocular pain. 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 Securely in place. Has not seen M+G for a few years, but does not appear in dire need of tajik at this time. Recommend observation. Pseudophakia 04/10/2010 Assessment & Plan (12/02/2020 10:08 AM CDT): Anterior chamber (AC) intraocular lens (IOL) in place Stable vision Recheck 1 year Secondary open-angle glaucoma 04/10/2010 Assessment & Plan (12/02/2020 3:34 PM CDT): Patient taking pred forte (PF) BID left eye (OS) for history of penetrating keratoplasty (penetrating keratoplasty (PK)) vision is stable Intraocular pressure (IOP) stable at 11 mmHg Continue Cosopt BID Discussed dilation exam and glaucoma evaluation Assessment & Plan (11/28/2018 8:59 AM CDT): IOP acceptable today on Cosopt BID. Recommend CPM. Needs new glaucoma doctor for IOP checks. Surgical History Surgery Date Site/Laterality Comments SD CILIARY BODY DSTRJ CYCLOPHOTOCOAG TRANSSCERAL Transscleral Cyclophotocoagulation Semiconductor Diode Laser - (Added by TW Conv) SD XCAPSL CTRC RMVL INSJ IO LENS PROSTH W/O ECP Extracaps Cataract Extract With Prosthesis Insert Left Eye - (Added by TW Conv) SD KERATOPLASTY PENTRG EXCEPT APHAKIA/PSEUDOPHAKIA Cornea Transplant Penetrating - (Added by TW Conv) SD KERATOPLASTY ANTERIOR LAMELLAR Left Cornea Transplant - (Added by TW Conv) PENETRATING KERATOPLASTY 06/07/2007 - 06/06/2008 Left Medical History Medical History Date Comments Glaucoma Congenital Social History Tobacco Use Types Packs/Day Years Used Date Smoking Tobacco: Never Smokeless Tobacco: Never Comments Unknown Sex and Gender Information Value Date Recorded Sex Assigned at Not on file 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
--- OUTSIDE RECORDS SUMMARY | 2024-12-29 00:13 | XMS_ITS | Referral Summary ---
Author Organization [facility] Address [address] [place] [address] Care Team Providers Care Leather Stretcher Name Role Phone Kenneth Love MD Primary [...] does not appear in dire need of kyrgyz at this time. Recommend observation. Pseudophakia 04/10/2010 [...] Needs new glaucoma doctor for IOP checks. 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
[2024-12-29] MEDS: LACTATED RINGERS 1,000 ML 30 ML IV CONT (06:25)
--- NOTE | 2024-12-29 06:47 | PM.HPGS ---
History of Present Illness History of Present Illness Chief complaint: local swelling, mass on head Narrative: Patient seen and examined in pre-operative holding area. No interval change in medical history or symptoms. Patient recalls previous discussion of benefits and alternatives to procedure. Continues to desire to proceed with scalp mass excision. Reviewed procedure, post-op expectations and risks including but not limited to bleeding, infection, recurrence, undesireable cosmetic appearance, injury to nerve/vessel. Patient stated understanding and signed the consent form wishing to proceed. Review of Systems Review of Systems: All systems reviewed & are unremarkable except as noted in HPI and below PMFSH Past Medical History Medical History Obesity Legally blind Hypertension Surgical History Surgical History H/O eye surgery xs 2 Family History Family History Father Hyperlipidemia Hypertension Diabetes mellitus Sibling , age 51 Hyperlipidemia Breast cancer Mother Diabetes mellitus Congestive heart failure Social History Social History Smoking status: Never smoker Alcohol intake: never Substance use: never Substance use type: does not use Do You Feel Safe in your Home?: Yes Lack of Transportation: No Lack of Food: Never True Current Housing: I Have Housing Concerned About Future Housing: No Difficulty Paying Gas/Electric Bills: No Difficulty Paying for Meds: No Currently Unemployed: No Education: Decline to Answer Difficulty w/ Childcare or Family Care: No Living arrangements: with family Occupation/Education: other Gender identity (if verbalized by the patient): Female Meds Home Medications and Allergies Home Medications ?Medication ?Instructions ?Recorded ?Confirmed ?Type atenolol 25 mg tablet 25 mg PO DAILY 11/22/23 12/29/24 History dorzolamide 22.3 mg-timolol 6.8 1 drp EACH EYE BID 11/22/23 12/29/24 History mg/mL eye drops ascorbic acid (vitamin C) 1,000 mg 1,000 mg PO DAILY 12/22/24 12/29/24 History tablet,extended release (C Complex) multivitamin (Daily Multi-Vitamin 1 tablet PO DAILY 12/22/24 12/29/24 History tablet) omega 0-rtl-zvt-fish oil 1,200 mg 1 cap PO DAILY 12/22/24 12/29/24 History (144 mg-216 mg) capsule (Fish Oil) Allergies Allergy/AdvReac Type Severity Reaction Status Date / Time No Known Allergies Allergy Unverified 12/22/24 11:04 Exam Narrative: unchnaged Assessment and Plan Assessment and plan (1) Mass of scalp: Code(s): R22.0 - Localized swelling, mass and lump, head Status: Acute Assessment and Plan: cont as above
--- NOTE | 2024-12-29 06:48 | P.OP_ITS ---
Procedure Note - Detailed Date of Procedure 12/29/24 Pre-op Diagnosis local swelling, mass on head Post-op Diagnosis Same Procedure Performed excision scalp mass Surgeon Jerad Alcantar MD Crust Sorter vinnie jc pa-c Anesthesia General and MAC Description of Procedure Patient seen in pre-op holding area where site marked and consent formed signed. Patient was taken back to the operating on the stretcher. Time-out was performed with Anesthesia, surgeon and staff agreeing on patient's name, site, and surgery to be performed. SCDs were placed on the lower extremities and inflated. Antibiotics were given IV. After general anesthesia was administered the patient was placed in the left lateral decubitus position and prepped and draped in sterile fashion. I injected 15 cc of 1% lidocaine with epinephrine and 0.5% Marcaine plain around the operative site. I proceeded with making an incision over the mass through skin and dermis with 15 blade scalpel Bovie cautery was used to dissect through subcutaneous tissue down to occipital galeal fascia as the mass appeared to be subfascial. I made an incision in fascia and then I proceeded with circumferential dissection around this mass. After mass resection I irrigated with normal saline and hemostasis with bovie. Next, I used 15 blade scalpel to excise the looser stretched skin edges extending inferiorly and superiorly to account for dog ears and improve closure and reduce space. I closed with 3-0 Vicryl for fascia and dermis and 4-0 chromic. Dressing of bacitracin, Xeroform, 4 x 4 and a head wrap was then applied. The mass measured approximaely 10 cm in diameter. The length of closure was 8 cm. The patient was awakened from anesthesia and transferred to the recovery room in stable condition. Complications: None Estimated blood loss: 5 cc Disposition: Patient tolerated the procedure well and will go home later today Vinnie Jc PA-C was essential for positioning, retraction, closure and dressing placement [facility] Billing Surgery - Charge Forward: Surgery Billing ([id number] same for vinnie kinsey )
[2024-12-29] MEDS: ACETAMINOPHEN 500 MG TABLET 1000 MG PO (06:49)
--- NOTE | 2024-12-29 07:07 | P.PNAN_ITS ---
Anes - Initial Pre Proc Eval Procedure: Operation Date: 12/29/24 07:30 Proposed Procedures p Right Scalp Mass Excision - Jerad Alcantar MD Date/Time: 12/29/24 07:07 Surgeon: Jerad Alcantar MD Pre Op Diagnosis: local swelling, mass on head Patient Data Age: 54 Gender: F Height: 1.75 m Weight: 130.4 kg Last Vital Signs Temp 36.1 C L 12/29/24 06:20 Pulse 73 12/29/24 06:20 Resp 20 12/29/24 06:20 BP 143/87 H 12/29/24 06:20 Pulse Ox 96 12/29/24 06:20 O2 Del Method Room Air 12/29/24 06:20 Allergies Allergy/AdvReac Type Severity Reaction Status Date / Time No Known Allergies Allergy Unverified 12/22/24 11:04 Home Medications ?Medication ?Instructions ?Recorded ?Confirmed ?Type atenolol 25 mg tablet 25 mg PO DAILY 11/22/23 12/29/24 History dorzolamide 22.3 mg-timolol 6.8 1 drp EACH EYE BID 11/22/23 12/29/24 History mg/mL eye drops ascorbic acid (vitamin C) 1,000 mg 1,000 mg PO DAILY 12/22/24 12/29/24 History tablet,extended release (C Complex) multivitamin (Daily Multi-Vitamin 1 tablet PO DAILY 12/22/24 12/29/24 History tablet) omega 7-dwp-rsp-fish oil 1,200 mg 1 cap PO DAILY 12/22/24 12/29/24 History (144 mg-216 mg) capsule (Fish Oil) Patient hx anesthesia problems: none Family hx anesthesia problems: none Results Review: All pre-operative results and documents have been reviewed as part of the pre- operative evaluation. [facility] Past Medical History Medical History Obesity Legally blind Hypertension Surgical History Surgical History H/O eye surgery xs 2 Family History Family History Father Hyperlipidemia Hypertension Diabetes mellitus Sibling , age 51 Hyperlipidemia Breast cancer Mother Diabetes mellitus Congestive heart failure Social History Social History Smoking status: Never smoker Alcohol intake: never Substance use: never Substance use type: does not use Do You Feel Safe in your Home?: Yes Lack of Transportation: No Lack of Food: Never True Current Housing: I Have Housing Concerned About Future Housing: No Difficulty Paying Gas/Electric Bills: No Difficulty Paying for Meds: No Currently Unemployed: No Education: Decline to Answer Difficulty w/ Childcare or Family Care: No Living arrangements: with family Occupation/Education: other Gender identity (if verbalized by the patient): Female Anes - Eval Final PreProcedure Day of Procedure 12/29/24 07:07 Patient weight: morbidly obese Heart: regular rate and rhythm Lungs: clear to auscultation Airway: Mallampati scale class III Neurological: alert and oriented Last oral intake: >/= 8 hours ASA classification: III Emergent: no Anesthetic plan: proceed Anesthesia type and monitoring: general LMA and standard monitoring Results Review: All pre-operative results and documents have been reviewed as part of the pre- operative evaluation. Informed Consent: The patient's anesthetic plan and its attendant risks and benefits were discussed with the patient/family/POA. Questions were solicited and answers provided to the satisfaction of the patient/family/POA.
[2024-12-29] MEDS: ceFAZolin 3 GM/D5W 100 ML 100 ML IVPB (07:24)
--- NOTE | 2024-12-29 07:38 | S_PTH ---
PATIENT: Suzan Rosa LOC: [facility] U#:[id number] AGE/SX: 54/F ROOM: RE12/29/[address]: Jerad Alcantar MD : 1970 BED: DIS: 12/29/2024 SPEC #: [id number] RECD: 12/29/24 09:11 STATUS: AROLDO REQ #: [id number] ELISE: 12/29/24 07:[address]: Jerad Alcantar DEPT: [facility] Surgical RECD BY: Merlene Laguna ENTERED: 12/29/24 09:11 SP TYPE: Surgical OTHR DR: Kenneth LoveMD Tissues: A - Mass Procedures: Hematoxylin and Eosin Stain Gross and Microscopic Level 3
[2024-12-29] MEDS: BUPivacaine HCL 0.5% 10 ML AMP 20 ML INFILTRATE (07:53)
[2024-12-29] MEDS: LIDO 1%/EPINEPHRINE 1:100,000 20 ML VIAL INFILTRATE (07:54)
--- NOTE | 2024-12-29 09:43 | SUR.PHASEII ---
DR NEGRO CAME TO SPEAK TO PATIENT AND SPOUSE.
[2024-12-29] MEDS: oxyCODONE HCL (*CRX) 5 MG TAB IR PO (09:51)
--- NOTE | 2024-12-29 10:17 | SUR.PHASEII ---
DR PEREZ NOTIFIED RE: PATIENT'S ELEVATED BP 158/101; OKAY'D FOR PATIENT TO GO HOME AND FOLLOW UP WITH PMD; MESSAGED RELAYED TO PATIENT.
== END 2024-12-29 10:25 | disposition home or self-care (01) ==
PROVIDERS: PCP Internal Medicine; Visit Provider Plastic Surgery
PROC: (CPT 21014; principal; 2024-12-29 07:30)
DX: D17.0 Benign lipomatous neoplasm of skin and subcutaneous tissue of head, face and neck (principal); E66.01 Morbid (severe) obesity due to excess calories; Z68.41 Body mass index [BMI] 40.0-44.9, adult
CPT/HCPCS: 21014; 88304; A9270; J0690; J1100; J2003; J2004; J2250; J2405; J2704; J3010; J7120